=== PATIENT | female | born 1970 | race Caucasian/White ===

== ENCOUNTER 2016-11-23 12:55 | Emergency (ER) | payer BC, MEDICAID ==
[2016-11-23 13:07] VITALS: BP 175/98
[2016-11-23] MEDS ORDERED: Acetaminophen/oxyCODONE 325-5 MG Tab PO ONE (13:14)
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
[2016-11-23] MEDS ORDERED: Ketorolac 60 MG/2 ML SDV IM ONE (15:10)
== END 2016-11-23 15:25 | disposition home or self-care (01) ==
LOC: KA.ED 12:55
DX: S82.832A Other fracture of upper and lower end of left fibula, initial encounter for closed fracture (principal); I10 Essential (primary) hypertension; K21.9 Gastro-esophageal reflux disease without esophagitis; F17.210 Nicotine dependence, cigarettes, uncomplicated; Z88.5 Allergy status to narcotic agent; Z79.899 Other long term (current) drug therapy; V43.52XA Car driver injured in collision with other type car in traffic accident, initial encounter
CPT/HCPCS: 73562; 73590; 99283; A9270; J1885